=== PATIENT | female | born 2005 | race Caucasian/White ===

== ENCOUNTER 2024-01-26 19:06 | Emergency (ER) | payer OTHER, SELFPAY ==
[2024-01-26 19:11] VITALS: BP 110/74
--- NOTE | 2024-01-26 21:27 | ED.GENMED ---
History of Present Illness
General
Chief Complaint: Head Injury
Source: patient
Exam Limitations: none
Time Seen by Provider: 01/26/24 20:24
Nursing documentation reviewed up to this point in time: agreed with
Travel History
Have you had any contact with someone who has COVID-19?: No
Do you have any symptoms of coronavirus? Fever > 100 degrees, chills, cough, shortness of breath, sore throat, loss of taste or smell, muscle aches, or headache?: No
History of Present Illness
History of Present Illness:
Patient is a 18-year-old female presents to the ER for evaluation of head injury. Patient reports at work prior to arrival she was head butted by a dog and reports a dog knocked her unconscious. This witnessed by staff. She is unsure the length
of episode but believes it was brief. She then got up and walked and lay down. She currently complains of headache but denies any nausea vomiting light sensitivity. Patient denies any neck/back pain no other injuries.
Review of Systems
Review of Systems
Allergies reviewed?: Yes
All Other Systems: ROS reviewed and negative except as documented in HPI and ROS
Constitutional: Reports no symptoms; Denies fever or fatigue
Respiratory: Reports no symptoms
Cardiac: Reports no symptoms
ABD/GI: Denies nausea or vomiting
: Reports no symptoms
Musculoskeletal: Reports no symptoms; Denies neck pain or back pain
Phy Exam
General Physical Exam
General Presentation: no apparent distress
General age: appears stated age
General Skin: warm and dry
General Habitus: normal
General Mental: alert
General Hydration: appears well hydrated
Eye Exam
Eye Exam: PERRL and EOMI
Eye Exam General: PERRL: bilateral and EOM intact: bilateral
Pupil Exam: Bilateral: round and reactive
Neurological Exam
Neurological Exam: alert and oriented x3
[place] Coma Scale
Eye Opening: Spontaneous
Verbal Response: Oriented
Motor Response: Obeys Commands
GCS Total Score: 15
Cerebellar
Cerebellar Function: normal finger to nose
Musculoskeletal Exam
Musculoskeletal Exam: other (Positive small hematoma to right forehead no bony cervical spine tenderness)
Skin Exam
Skin Exam: normal color and warm/dry
Psychiatric Exam
Psychiatric Exam: normal mood/affect
Course
Orders/Labs/Results
Orders:
Orders
01/26/24 19:[address] [CT Head W/o Iv Contrast] Urgent
Comment:
Reason For Exam: KNOCKED OUT BY A DOG
01/26/24 21:16
Acetaminophen [Tylenol] 650 mg PO NOW STA
Vital Signs
Initial and Last Documented VS:
Initial Vital Signs
Temp Pulse Resp BP Pulse Ox
98.5 F 78 18 110/74 98
01/26/24 19:11 01/26/24 19:11 01/26/24 19:11 01/26/24 19:11 01/26/24 19:11
Last Documented Vital Signs
Temp Pulse Resp BP Pulse Ox
98.5 F 78 18 110/74 98
01/26/24 19:11 01/26/24 19:11 01/26/24 19:11 01/26/24 19:11 01/26/24 19:11
MDM/Problems Addressed
Differential Diagnosis Includes:
Not limited to head injury, concussion
MDM/Problems Addressed:
Patient was head butted by a dog and apparently had brief episode of loss of consciousness. She presents awake alert no acute distress no vomiting no nausea parents at bedside report patient is acting her baseline. She has no nausea vomiting light
sensitivity. Symptoms are consistent with head injury CAT scan done and negative. Discussed close outpatient follow-up with family doctor/work health.
*Radiology
Radiology exam reviewed: radiology read reviewed
*Critical Care Note
Total Time (30-74mins, 75-104mins- exclusive of procedures): Not Applicable
ED Attending Note
-
Portions of this chart may have been created with voice recognition software.� Occasional wrong word or��sound alike� substitutions may have occurred due to the inherent limitations of voice recognition software.
Discharge Plan
Departure
Patient Disposition: Home (Routine Discharge)
Date of Disposition: 01/26/24
Time of Disposition: 21:28
Patient with high blood pressure during this ER visit?: No
Condition: Fair
Covid-19: Not Applicable
Discharge Problem:
Head injury
Instructions: Head Injury in Adults (DC)
Referrals:
Dmitry Yu DO [Family Provider] -
Activity Restrictions/Additional Instructions:
Follow-up with family doctor/work health in the next several days for reevaluation. You may take Tylenol or ibuprofen for discomfort. Return if any worsening of symptoms.
Interventions
Interventions:
*Risk Screen - Suicide Last Done: 01/26/24 19:11
*General Assessment Last Done: 01/26/24 20:42
*Neglect/Abuse Screening Last Done: 01/26/24 19:11
ED- Neurological Assessment Last Done: 01/26/24 20:39
ED-Skin Assessment Last Done: 01/26/24 20:39
Discharge Date and Time
Print Language: FRENCH
[2024-01-26] MEDS: TYLENOL 650 MG PO (21:32)
== END 2024-01-26 21:36 | disposition home or self-care (01) ==
LOC: EMR 19:06
PROVIDERS: EMERGENCY PHYSICIAN Emergency Medicine; FAMILY PHYSICIAN Family Medicine
DX: S09.90XA Unspecified injury of head, initial encounter (principal); W54.1XXA Struck by dog, initial encounter; Y99.0 Civilian activity done for income or pay
CPT/HCPCS: 99284; 70450